=== PATIENT | female | born 1955 | race Asian ===

== ENCOUNTER 2017-05-10 22:10 | Emergency (ER) | payer SELFPAY ==
[~2017-05-10] VITALS: Ht 165.1 cm; Wt 76.2 kg
[2017-05-10] MEDS ORDERED: IBUPROFEN 600 MG TAB PO STA (22:23)
[2017-05-10] MEDS ORDERED: IBUPROFEN 600 MG TAB ONE (22:28)
--- NOTE | 2017-05-10 22:47 | Diagnostic Imaging Report ---
EXAM: CHEST 2 VIEWS, PA and lateral DATE: 05/10/2017 10:23 PM Time stamp on exam: 2219 hours INDICATION: Cough, flulike symptoms COMPARISON: None FINDINGS: LINES/TUBES: None LUNGS: No consolidations or edema. Mild bronchial thickening and bibasilar atelectasis. PLEURA: No effusions or pneumothorax. HEART AND MEDIASTINUM: Normal size and contour. BONES AND SOFT TISSUES: No acute findings. IMPRESSION: Mild bronchial thickening and bibasilar atelectasis. This could represent viral/atypical infection in the appropriate clinical setting. Signed by: Dr. Mary Monroe M.D. on 05/10/2017 10:44 PM
[2017-05-11 01:02] VITALS: BP 124/65
== END 2017-05-11 01:07 | disposition home or self-care (01) ==
LOC: ER 22:10
DX: R50.9 Fever, unspecified (principal); J09.X2 Influenza due to identified novel influenza A virus with other respiratory manifestations
CPT/HCPCS: 71020; 87400; 99282